=== PATIENT | male | born 1995 | race Caucasian/White ===

== ENCOUNTER 2022-07-11 22:10 | Emergency (ER) | payer OTHER, SELFPAY ==
[2022-07-11 22:11] VITALS: BP 158/90; PULSE 77; RESP 18; TEMP 36.7; O2SAT 100; BMI 22.5
--- NOTE | 2022-07-11 22:37 | EX.ED.UPPERE ---
HPI History of Present Illness Chief Complaint: Upper Extremity Injury Narrative Narrative: 27-year-old male presenting with right thumb injury. Apparently he injured this at work with exhaust pipe which came down on his thumb. He had a subungual hematoma and subsequently trephinated this. He states he seen his uncle do this many times. Minimal discharge was expressed from the thumb. Patient states he is having trouble bending his thumb due to pain. He is concerned he might have fractured this. He is right-hand dominant. PFSH PFSH Allergy/AdvReac Type Severity Reaction Status Date / Time Penicillins [cillins] Allergy PT UNSURE Verified 07/11/22 22:13 OF REACTION Social History Smoking Status: Never smoker ROS ROS ED Constitutional Constitutional ED: Denies chills Eyes Eyes: Denies blurry vision or change in vision ENT ENT ED: Denies ear pain or sore throat Cardiovascular Cardiovascular: Denies chest pain, palpitations or racing heartbeat Respiratory/Chest Respiratory/Chest: Denies cough, dyspnea or sputum Gastrointestinal Gastrointestinal: Denies abdominal pain, constipation, diarrhea, nausea or vomiting Genitourinary Genitourinary ED: Denies dysuria, hematuria or urinary frequency Musculoskeletal Musculoskeletal: Reports other Details: Pain in right thumb ; Denies arthralgias, myalgias or neck pain Integumentary Denies abscess or Abrasions Neurologic Neurologic: Denies headache(s), paresthesias or weakness Psychiatric Psychiatric: Denies anxiety, depression, suicidal ideation or suicidal thoughts Endocrine Endocrinology: Denies polydipsia or polyuria EXAM Physical Exam Const Vital Signs: 07/11/22 22:11 Temperature 98.0 F Temperature Source Temporal Pulse Rate 77 Respiratory Rate 18 Blood Pressure 158/90 H Blood Pressure Mean 112 Pulse Ox 100 Oxygen Delivery Method Room Air Positive well nourished General Appearance ED: NAD HEENT Reports moist mucous membranes normocephalic Eyes PERRL and EOMs intact bilaterally Resp normal respiratory effort Cardio regular rate and regular rhythm Extremity Extremity Narrative: Tenderness to palpation of the right thumb at the base of the nailbed. Patient has a subungual hematoma status post trephination at home. There is no drainage. No deformity. There is some edema and mild erythema at the base of the nailbed. Right hand neurovascular intact with brisk cap refill to all 5 fingers. Neuro oriented x3 Sensorium / Orientation: alert Motor Exam: strength 5/5 throughout Psych mental status grossly normal MDM MDM MDM Narrative Medical decision making narrative: Patient presenting with right thumb pain. He has a subungual hematoma however he is self trephinated this. He describes minimal drainage from this. I discussed with him that his nail will likely fall off at some point. I recommended soaking the hand at least 3 times a day warm soapy water. Dressings applied afterwards. X-ray of the right hand on my interpretation shows no acute fracture or subluxation. Patient use Tylenol and ibuprofen as needed for pain. He was given limitations for work for his right hand. Discharged in stable condition. Impression: 1. Right thumb contusion 2. Right thumb subungual hematoma Discharge Plan Triage Chief Complaint: Upper Extremity Injury ED Provider: Alex Kaur Dx/Rx/DC Orders Instructions: ED Finger Contusion, ED Subungual Hematoma Primary Care Provider: Care Physician,No Primary Referrals: NOT,DEFINED [Non-Staff] - Clinic,NOW [Non-Staff] - 3-5 Days Disposition Disposition: Home, Self Care
--- NOTE | 2022-07-11 22:41 | RAD_ITS ---
INDICATION: thumb injury EXAMINATION/TECHNIQUE: X-RAY - RIGHT XR Hand Min 3 Views 3 VIEWS COMPARISON: None. FINDINGS: SOFT TISSUES: Mild distal thumb edema. No soft tissue swelling or gas. No radiopaque foreign body. BONES/JOINTS: No acute fracture or subluxation.. Normal alignment. Preservation of the joint space.. No sclerotic or destructive changes observed. RAD/Hand Min 3 Views IMPRESSION: Mild distal thumb edema. No evidence of osseous injury.. Electronically Signed: Rober Cardenas MD at 23:03 EDT ,
== END 2022-07-11 23:19 | disposition home or self-care (01) ==
PROVIDERS: Emergency Provider Student in an Organized Health Care Education/Training Program; Visit Provider Student in an Organized Health Care Education/Training Program
DX: S60.111A Contusion of right thumb with damage to nail, initial encounter (principal); X58.XXXA Exposure to other specified factors, initial encounter
CPT/HCPCS: 73130; 99281; 99282